=== PATIENT | female | born 1990 | race African-American/Black ===

== ENCOUNTER 2017-10-08 15:34 | Inpatient (IN) | payer MEDICAID ==
[~2017-10-08] VITALS: Ht 167.6 cm; Wt 134.8 kg
--- NOTE | ~2017-10-08 | OP ---
PATIENT NAME: TYSON FISHER MEDICAL RECORD: [id number] :90 LOCATION:D.M2 D.2136 ADMISSION DATE:10/08/17 SURGEON: JAZ NAYAK MD DATE OF OPERATION: 10/13/2017 PREOPERATIVE DIAGNOSES: 1. End-stage renal disease. 2. Hypertension. 3. Diabetes mellitus. 4. Morbid obesity. POSTOPERATIVE DIAGNOSES: 1. End-stage renal disease. 2. Hypertension. 3. Diabetes mellitus. 4. Morbid obesity. PROCEDURE: Laparoscopic peritoneal dialysis catheter placement. SURGEON: Jaz Nayak MD REPORT OF PROCEDURE: The patient's abdomen was prepped and draped in sterile fashion. A Veress needle was inserted in the left upper quadrant and abdomen was insufflated. A 5-mm Visiport trocar was inserted in the midline and above the umbilicus. Under direct visualization, I could see the Veress needle and there was no sign of any injury to bowel or surrounding structures. We placed a 5-mm trocar in the left lower quadrant under direct visualization. With this, I was able to take down some adhesions of the small bowel to the anterior abdominal wall from her previous midline incision. The adhesions came down easily. Once this was done, we had free look into the patient's pelvis. The patient's uterus was adherent to the anterior abdominal wall from the previous section. A 5-mm trocar was then placed in the right lower quadrant projecting into the midline of the abdomen. With this, I was able to pass a grasper through my left lower quadrant trocar into the right lower quadrant trocar. The 5-mm trocar was then removed from the right lower quadrant and a grasper was used to grasp the pigtail end of the peritoneal dialysis catheter. This was pulled through the skin and into position with 2 sheaths in good position at the peritoneal inlet and at the skin level. Once these were in good position, then the pigtail was placed in the pelvis with ease. This flushed and aspirated easily with normal saline. We then removed the insufflation and the trocars were removed. The catheter was sutured into place with 3-0 nylon and the skin incisions were closed with subcutaneous 5-0 Monocryl. A total of 10 mL of 0.25% Marcaine with epinephrine was infused into the surrounding tissues and the wounds were dressed appropriately. COMPLICATIONS: None. CONDITION: Stable. ANESTHESIA: General endotracheal and local. BLOOD LOSS: Minimal. TRANSINT:[id number] Voice Confirmation ID: [id number] DOCUMENT ID: [id number] OPERATIVE REPORT [id number] TYSON FISHER CHRISTIAN MD at 1319 CC: [id number] DICTATION DATE: 10/13/17 1624 PAINTER DRUM: 10/13/17 1656 DIS IN 10/14/17 [id number] [place] [address]
--- NOTE | ~2017-10-08 | OP ---
PATIENT NAME: TYSON FISHER MEDICAL RECORD: [id number] :90 LOCATION:D.M2 D.2136 ADMISSION DATE:10/08/17 SURGEON: JAZ NAYAK MD DATE OF OPERATION: 10/09/2017 PREOPERATIVE DIAGNOSES: 1. End-stage renal disease. 2. Morbid obesity. 3. Hypertension. POSTOPERATIVE DIAGNOSES: 1. End-stage renal disease. 2. Morbid obesity. 3. Hypertension. PROCEDURE: 1. Left IJ 23-cm HemoSplit catheter placement. 2. Fluoroscopic interpretation. SURGEON: Jaz Nayak MD REPORT OF PROCEDURE: The patient's left neck was prepped and draped in sterile fashion. Using ultrasound guidance, a needle was used to cannulate the left internal jugular vein. Using fluoroscopic guidance, we could see that the wire was in good position in the venous system. A skin incision was made on the left lateral chest and we tunneled the catheter between this and the wire exit site. Multiple dilators were placed over the wire followed by the dilator trocar device. The wire and dilator were removed and the catheter tips were advanced through the trocar. The catheter tips rested in good position at the right atrial superior vena caval junction. The catheter aspirated nonpulsatile dark blood and flushed easily with heparinized saline. The catheter was sutured into place with 3-0 nylon. The skin incisions were closed with subcutaneous 5-0 Monocryl. COMPLICATIONS: None. CONDITION: Stable. ANESTHESIA: General endotracheal. BLOOD LOSS: Minimal. TRANSINT:[id number] Voice Confirmation ID: [id number] DOCUMENT ID: [id number] JAZ NAYAK MD at 1319 CC: [id number] DICTATION DATE: 10/09/17 1005 FONDANT PUFF MAKER: 10/09/17 1210 DIS IN 10/14/17 [id number] [place] [address]
[2017-10-08 16:30] LABS: BASOPHILS 0.2 % (0-2); EOSINOPHILS 4.7 % (0-7); HEMATOCRIT 29.8 % (36.0-48.0); HEMOGLOBIN 9.5 g/dL (12-16); IMMATURE GRANULOCYTES 0.2 % (0-5); LYMPHOCYTES 32.6 % (15-50); MCH 25.8 pg (26.0-34.0); MCHC 31.9 g/dL (31.0-37.0); MEAN PLATELET VOLUME 9.3 fL (7.4-10.4); MONOCYTES 4.8 % (2-11); NEUTROPHILS 57.5 % (40-80); PLATELET COUNT 343 10x3/uL (130-400); RBC 3.68 10x6/uL (4.00-5.40); RDW 12.5 % (11.5-14.5)
[2017-10-08 16:47] LABS: ALBUMIN 2.6 g/dL (3.4-5.0); ANION GAP 15.7 mmol/L (8-16); BILIRUBIN - TOTAL 0.19 mg/dL (0.2-1.3); CARBON DIOXIDE 20.2 mmol/L (21.0-32.0); CREATININE - SERUM 7.2 mg/dL (0.6-1.3); POTASSIUM - SERUM 4.9 mmol/L (3.5-5.1); PROTEIN - SERUM 7.3 g/dL (6.4-8.2)
[2017-10-08 17:12] LABS: APPEARANCE CLEAR (CLEAR); BILIRUBIN NEGATIVE (NEGATIVE); COLOR YELLOW (YELLOW); GLUCOSE 1000 mg/dL (NEGATIVE); KETONE NEGATIVE (NEGATIVE); NITRITE NEGATIVE (NEGATIVE); PROTEIN 2+ mg/dL (NEGATIVE); UROBILINOGEN NORMAL (NORMAL)
[2017-10-08 17:14] LABS: BACTERIA FEW /hpf (NONE SEEN); EPITHELIAL CELLS 0-5 /hpf (0-5); WHITE CELLS - URINE OCC /hpf (0-5)
[2017-10-08] MEDS ORDERED: NORVASC5 MG PO (18:21)
[2017-10-08] MEDS ORDERED: ROCALTROL0.25 MCG PO (18:21)
[2017-10-08] MEDS ORDERED: TOPROL XL50 MG PO (18:22)
[2017-10-08] MEDS ORDERED: ZOCOR40 MG PO (18:22)
[2017-10-08] MEDS ORDERED: EZFE 200200 MG PO (18:22)
[2017-10-08] MEDS ORDERED: LASIX80 MG PO (18:23)
[2017-10-08] MEDS ORDERED: HUMALOG 30100 UNITS/ SC (18:23)
[2017-10-08] MEDS ORDERED: LEVEMIR100 U/M1 SC (18:24)
[2017-10-08 18:25] VITALS: BP 192/98; BMI 43.6
[2017-10-08] MEDS ORDERED: XANAX0.5 MG PO (18:25)
[2017-10-09] VITALS: BP 156/93
[2017-10-09 04:00] VITALS: BP 141/76
[2017-10-09 06:52] LABS: ANION GAP 18.2 mmol/L (8-16); CALCIUM 8.1 mg/dL (8.5-10.1); CARBON DIOXIDE 17.6 mmol/L (21.0-32.0); CREATININE - SERUM 7.2 mg/dL (0.6-1.3); POTASSIUM - SERUM 4.8 mmol/L (3.5-5.1)
[2017-10-09 06:53] LABS: BASOPHILS 0.3 % (0-2); EOSINOPHILS 5.4 % (0-7); HEMATOCRIT 29.4 % (36.0-48.0); IMMATURE GRANULOCYTES 0.1 % (0-5); MCH 25.4 pg (26.0-34.0); MCHC 30.6 g/dL (31.0-37.0); MCV 82.8 fL (80.0-100.0); MONOCYTES 6.3 % (2-11); NEUTROPHILS 50.9 % (40-80); PLATELET COUNT 317 10x3/uL (130-400); RBC 3.55 10x6/uL (4.00-5.40); RDW 12.6 % (11.5-14.5); WBC 9.5 10x3/uL (4.8-10.8)
[2017-10-09 06:58] LABS: INR 0.87 (0.85-1.17); PROTIME 11.5 SECONDS (11.6-15.0)
[2017-10-09 08:36] LABS: HCG SERUM NEGATIVE (NEGATIVE)
[2017-10-09 08:53] VITALS: BP 183/102
[2017-10-09 13:36] VITALS: BP 161/86
[2017-10-09 13:37] VITALS: Ht 167.6 cm; Wt 134.8 kg
[2017-10-09 16:27] VITALS: BP 147/96
[2017-10-10] VITALS: BP 171/78
[2017-10-10 07:45] VITALS: BP 148/95
[2017-10-10 09:23] LABS: BASOPHILS 0.3 % (0-2); EOSINOPHILS 2.7 % (0-7); HEMATOCRIT 26.6 % (36.0-48.0); HEMOGLOBIN 8.3 g/dL (12-16); IMMATURE GRANULOCYTES 0.1 % (0-5); LYMPHOCYTES 38.6 % (15-50); MCH 25.3 pg (26.0-34.0); MCHC 31.2 g/dL (31.0-37.0); MCV 81.1 fL (80.0-100.0); MEAN PLATELET VOLUME 9.1 fL (7.4-10.4); MONOCYTES 5.8 % (2-11); NEUTROPHILS 52.5 % (40-80); PLATELET COUNT 279 10x3/uL (130-400); RBC 3.28 10x6/uL (4.00-5.40); RDW 12.7 % (11.5-14.5); WBC 8.6 10x3/uL (4.8-10.8)
[2017-10-10 09:31] LABS: CALCIUM 7.9 mg/dL (8.5-10.1); CREATININE - SERUM 5.4 mg/dL (0.6-1.3)
[2017-10-10 09:36] LABS: ANION GAP 12.5 mmol/L (8-16); CARBON DIOXIDE 26.2 mmol/L (21.0-32.0); POTASSIUM - SERUM 3.7 mmol/L (3.5-5.1)
[2017-10-10 14:58] VITALS: BP 133/86
[2017-10-10 21:40] VITALS: BP 146/101
[2017-10-11 00:47] VITALS: BP 154/82
[2017-10-11 06:44] VITALS: BP 142/87
[2017-10-11 08:11] VITALS: BP 118/64
[2017-10-11 11:26] VITALS: BP 131/62
[2017-10-11 14:10] LABS: ANION GAP 16.6 mmol/L (8-16); CALCIUM 8.1 mg/dL (8.5-10.1); CARBON DIOXIDE 23.5 mmol/L (21.0-32.0); CREATININE - SERUM 5.3 mg/dL (0.6-1.3); POTASSIUM - SERUM 4.1 mmol/L (3.5-5.1)
[2017-10-11 16:53] VITALS: BP 136/74
[2017-10-12 05:57] LABS: BASOPHILS 0.4 % (0-2); EOSINOPHILS 3.4 % (0-7); HEMATOCRIT 29.7 % (36.0-48.0); HEMOGLOBIN 9.4 g/dL (12-16); IMMATURE GRANULOCYTES 0.2 % (0-5); LYMPHOCYTES 31.1 % (15-50); MCH 25.7 pg (26.0-34.0); MCHC 31.6 g/dL (31.0-37.0); MCV 81.1 fL (80.0-100.0); MEAN PLATELET VOLUME 8.8 fL (7.4-10.4); MONOCYTES 6.7 % (2-11); NEUTROPHILS 58.2 % (40-80); PLATELET COUNT 300 10x3/uL (130-400); RBC 3.66 10x6/uL (4.00-5.40); RDW 12.4 % (11.5-14.5); WBC 10.1 10x3/uL (4.8-10.8)
[2017-10-12 06:00] VITALS: BP 155/85
[2017-10-12 06:10] LABS: ANION GAP 13.8 mmol/L (8-16); CALCIUM 8.3 mg/dL (8.5-10.1); CARBON DIOXIDE 26.2 mmol/L (21.0-32.0); CREATININE - SERUM 5.9 mg/dL (0.6-1.3)
[2017-10-12 07:50] VITALS: BP 131/84
[2017-10-12 16:27] VITALS: BP 123/106
[2017-10-12 20:00] VITALS: BP 142/87
[2017-10-13] VITALS (7 sets, daily range): BP systolic 95–143; BP diastolic 56–83
[2017-10-13 04:14] LABS: HEPATITIS C ANTIBODY <0.1 (0.0-0.9)
[2017-10-13 06:26] LABS: BASOPHILS 0.2 % (0-2); EOSINOPHILS 3.1 % (0-7); HEMATOCRIT 28.4 % (36.0-48.0); HEMOGLOBIN 8.9 g/dL (12-16); IMMATURE GRANULOCYTES 0.2 % (0-5); LYMPHOCYTES 24.5 % (15-50); MCH 25.4 pg (26.0-34.0); MCHC 31.3 g/dL (31.0-37.0); MCV 80.9 fL (80.0-100.0); MONOCYTES 6.7 % (2-11); NEUTROPHILS 65.3 % (40-80); PLATELET COUNT 280 10x3/uL (130-400); RBC 3.51 10x6/uL (4.00-5.40); RDW 12.4 % (11.5-14.5); WBC 10.1 10x3/uL (4.8-10.8)
[2017-10-13 06:44] LABS: ANION GAP 13.6 mmol/L (8-16); CALCIUM 7.9 mg/dL (8.5-10.1); CARBON DIOXIDE 25.2 mmol/L (21.0-32.0); CREATININE - SERUM 4.8 mg/dL (0.6-1.3); POTASSIUM - SERUM 3.8 mmol/L (3.5-5.1)
[2017-10-14 06:44] LABS: BASOPHILS 0.2 % (0-2); EOSINOPHILS 1.5 % (0-7); HEMOGLOBIN 8.7 g/dL (12-16); IMMATURE GRANULOCYTES 0.2 % (0-5); LYMPHOCYTES 21.8 % (15-50); MCH 25.8 pg (26.0-34.0); MCHC 31.1 g/dL (31.0-37.0); MEAN PLATELET VOLUME 9.1 fL (7.4-10.4); MONOCYTES 8.5 % (2-11); NEUTROPHILS 67.8 % (40-80); PLATELET COUNT 318 10x3/uL (130-400); RBC 3.37 10x6/uL (4.00-5.40); RDW 12.7 % (11.5-14.5)
[2017-10-14 06:51] LABS: ANION GAP 14.8 mmol/L (8-16); CALCIUM 8.2 mg/dL (8.5-10.1); CARBON DIOXIDE 24.8 mmol/L (21.0-32.0)
[2017-10-14 06:52] LABS: CREATININE - SERUM 6.2 mg/dL (0.6-1.3); POTASSIUM - SERUM 4.6 mmol/L (3.5-5.1)
[2017-10-14 06:57] LABS: MCV 83.1 fL (80.0-100.0); WBC 12.7 10x3/uL (4.8-10.8)
[2017-10-14 08:37] VITALS: BP 153/84
[2017-12-07] MEDS ORDERED: BUPROPION HCL150 M1 PO (13:32)
[2017-12-07] MEDS ORDERED: ROCALTROL0.25 MCG PO (13:32)
[2017-12-07] MEDS ORDERED: SLOW RELEASE I160 MG PO (13:33)
[2017-12-07] MEDS ORDERED: ZOCOR40 MG PO (13:33)
[2017-12-07] MEDS ORDERED: HYDRALAZINE HCL50 MG PO (13:34)
== END 2017-10-14 11:39 | disposition home or self-care (01) | DRG 673 ==
LOC: D.ER 15:34 → D.M2 17:23
PROVIDERS: Emergency Medicine; Internal Medicine Nephrology; Physician Assistant Medical; Surgery
PROC: B5181ZA Fluoroscopy of Superior Vena Cava using Low Osmolar Contrast, Guidance (ICD-10-PCS; 2017-10-09)
PROC: 02HV33Z Insertion of Infusion Device into Superior Vena Cava, Percutaneous Approach (ICD-10-PCS; principal; 2017-10-09 12:00)
PROC: 0WHG43Z Insertion of Infusion Device into Peritoneal Cavity, Percutaneous Endoscopic Approach (ICD-10-PCS; 2017-10-13)
DX: I12.0 Hypertensive chronic kidney disease with stage 5 chronic kidney disease or end stage renal disease (principal); N18.6 End stage renal disease; Z68.41 Body mass index [BMI] 40.0-44.9, adult; E11.22 Type 2 diabetes mellitus with diabetic chronic kidney disease; E11.65 Type 2 diabetes mellitus with hyperglycemia; E66.01 Morbid (severe) obesity due to excess calories

== ENCOUNTER 2017-12-08 05:55 | Day surgery (SDC) | payer MEDICAID ==
[~2017-12-08] VITALS: Ht 167.6 cm; Wt 125.2 kg
--- NOTE | ~2017-12-08 | OP ---
PATIENT NAME: TYSON FISHER MEDICAL RECORD: [id number] :90 LOCATION:D.OPS ADMISSION DATE: SURGEON: DUANE NAYAK MD DATE OF OPERATION: 12/08/2017 PREOPERATIVE DIAGNOSES: 1. Anemia of chronic disease. 2. Need for IV access. 3. End-stage renal disease. 4. Diabetes mellitus. 5. Hypertension. 6. Morbid obesity. POSTOPERATIVE DIAGNOSES: 1. Anemia of chronic disease. 2. Need for IV access. 3. End-stage renal disease. 4. Diabetes mellitus. 5. Hypertension. 6. Morbid obesity. PROCEDURE: 1. Left internal jugular port placement. 2. Fluoroscopic interpretation. SURGEON: Duane Nayak MD REPORT OF PROCEDURE: The patient's chest and neck were prepped and draped in sterile fashion. Using ultrasound guidance, a needle was used to cannulate the left internal jugular vein. A guidewire was advanced with ease. Fluoro was used to note that the wire was in good position in the venous system. A skin incision was then made on the left lateral chest and a subcutaneous pouch was made over the pectoral fascia. The catheter was tunneled between this pouch and the wire exit site. The port was then sutured down using interrupted 2-0 Prolenes times 2. The catheter was cut with a beveled tip at 22 cm. The dilator trocar device was then placed over the wire, and the wire and dilator were removed. The catheter tip was advanced through the trocar and the trocar was removed. The catheter tips were resting in good position in superior vena cava. We then aspirated the port, and aspirated freely and flushed easily with heparinized saline. The subcutaneous tissues were reapproximated with interrupted 3-0 Vicryl and then infused with 10 mL of 0.25% Marcaine with epinephrine. The skin incision was closed with subcutaneous 5-0 Monocryl and dressed appropriately. COMPLICATIONS: None. CONDITION: Stable. ANESTHESIA: General endotracheal and local. BLOOD LOSS: Minimal. TRANSINT:[id number] Voice Confirmation ID: [id number] DOCUMENT ID: [id number] OPERATIVE REPORT [id number] PHILLIPTYSON DUANE NAYAK MD at 1052 CC: KIT HERMOSILLO [id number] DICTATION DATE: 12/08/17 0947 PEDIATRIC LICENSED PRACTICAL NURSE: 12/08/17 1302 [facility] [place] 12/08/17 [facility] [address] [place] [address]
[~2017-12-08 05:55] MED LIST: BUPROPION HCL150 M1 PO; EZFE 200200 MG PO; HUMALOG 30100 UNITS/ SC; HYDRALAZINE HCL50 MG PO; LASIX80 MG PO; LEVEMIR100 U/M1 SC; NORVASC5 MG PO; ROCALTROL0.25 MCG PO; SLOW RELEASE I160 MG PO; TOPROL XL50 MG PO; XANAX0.5 MG PO; ZOCOR40 MG PO
[2017-12-08 06:52] LABS: BASOPHILS 0.4 % (0-2); HEMATOCRIT 38.1 % (36.0-48.0); HEMOGLOBIN 11.8 g/dL (12-16); IMMATURE GRANULOCYTES 0.1 % (0-5); LYMPHOCYTES 36.9 % (15-50); MCH 25.9 pg (26.0-34.0); MCV 83.7 fL (80.0-100.0); MEAN PLATELET VOLUME 8.7 fL (7.4-10.4); NEUTROPHILS 54.6 % (40-80); PLATELET COUNT 378 10x3/uL (130-400); RBC 4.55 10x6/uL (4.00-5.40); RDW 14.4 % (11.5-14.5); WBC 7.9 10x3/uL (4.8-10.8)
[2017-12-08 07:09] LABS: INR 0.97 (0.85-1.17); PROTIME 12.5 SECONDS (11.6-15.0)
[2017-12-08 07:10] LABS: APTT 27.9 SECONDS (22.8-39.4)
[2017-12-08] MEDS ORDERED: PHENERGAN25 M1 (07:15)
[2017-12-08 07:16] VITALS: BP 129/89; Ht 167.6 cm; Wt 125.2 kg
[2017-12-08 07:24] LABS: ANION GAP 15.2 mmol/L (8-16); CALCIUM 8.4 mg/dL (8.5-10.1); CARBON DIOXIDE 26.5 mmol/L (21.0-32.0); CREATININE - SERUM 6.4 mg/dL (0.6-1.3); POTASSIUM - SERUM 3.7 mmol/L (3.5-5.1)
[2017-12-08 07:34] LABS: HCG URINE NEGATIVE (NEGATIVE)
[2017-12-08] MEDS ORDERED: HYDROCODONE-APA1 TAB PO (09:43)
== END 2017-12-08 12:00 | disposition home or self-care (01) ==
LOC: D.OPS 05:55
PROVIDERS: Internal Medicine Nephrology; Surgery
DX: E11.22 Type 2 diabetes mellitus with diabetic chronic kidney disease (principal); I12.0 Hypertensive chronic kidney disease with stage 5 chronic kidney disease or end stage renal disease; N18.6 End stage renal disease; D63.1 Anemia in chronic kidney disease; E66.01 Morbid (severe) obesity due to excess calories; Z68.41 Body mass index [BMI] 40.0-44.9, adult; Z01.812 Encounter for preprocedural laboratory examination

== ENCOUNTER 2018-04-02 06:23 | Day surgery (SDC) | payer MEDICARE ==
[~2018-04-02] VITALS: Ht 167.6 cm; Wt 116.8 kg
--- NOTE | ~2018-04-02 | OP ---
PATIENT NAME: TYSON FISHER MEDICAL RECORD: [id number] :90 LOCATION:D.OPS ADMISSION DATE: SURGEON: JAZ NAYAK MD DATE OF OPERATION: 04/02/2018 PREOPERATIVE DIAGNOSES: 1. Indwelling port. 2. End-stage renal disease. 3. Hypertension. 4. Hypercholesterolemia. 5. Diabetes mellitus. 6. Morbid obesity. POSTOPERATIVE DIAGNOSES: 1. Indwelling port. 2. End-stage renal disease. 3. Hypertension. 4. Hypercholesterolemia. 5. Diabetes mellitus. 6. Morbid obesity. PROCEDURE: Left subclavian vein port removal. SURGEON: Jaz Nayak MD REPORT OF PROCEDURE: The patient's left chest was prepped and draped in sterile fashion. A total of 10 mL of 1% lidocaine with epinephrine was infused into the surrounding tissues. A transverse skin incision was made overlying the port. Electrocautery was used to dissect through the subcutaneous tissues. We were able to come around the catheter leading from the port. This was removed and a 3-0 Vicryl was used in a [id number] fashion to close off the lumen. The catheter was then excised removing the suture, which was holding it in place. We then irrigated out the wound with normal saline. The subcutaneous tissues were reapproximated with interrupted 3-0 Vicryl and the skin was closed with running subcutaneous 5-0 Monocryl. COMPLICATIONS: None. CONDITION: Stable. ANESTHESIA: Local MAC. BLOOD LOSS: Minimal. TRANSINT:[id number] Voice Confirmation ID: [id number] DOCUMENT ID: [id number] JAZ NAYAK MD at 1110 CC: [id number] DICTATION DATE: 04/02/18916 LACQUER POLISHER: 04/02/18 1058 [facility] 04/02/18 [place] [address]
[~2018-04-02 06:23] MED LIST changes: +HYDROCODONE-APA1 TAB PO; +PHENERGAN25 M1
[2018-04-02 07:04] LABS: BASOPHILS 0.4 % (0-2); HEMATOCRIT 35.4 % (36.0-48.0); IMMATURE GRANULOCYTES 0.1 % (0-5); LYMPHOCYTES 34.8 % (15-50); MCH 26.9 pg (26.0-34.0); MCHC 31.1 g/dL (31.0-37.0); MCV 86.6 fL (80.0-100.0); MONOCYTES 6.7 % (2-11); PLATELET COUNT 382 10x3/uL (130-400); RBC 4.09 10x6/uL (4.00-5.40); RDW 19.1 % (11.5-14.5); WBC 8.5 10x3/uL (4.8-10.8)
[2018-04-02 07:06] LABS: ANION GAP 14.1 mmol/L (8-16); CALCIUM 8.6 mg/dL (8.5-10.1); CARBON DIOXIDE 27.7 mmol/L (21.0-32.0); CREATININE - SERUM 9.4 mg/dL (0.6-1.3); POTASSIUM - SERUM 3.8 mmol/L (3.5-5.1)
[2018-04-02 08:08] VITALS: BP 138/83; Ht 167.6 cm; Wt 116.8 kg
[2018-04-02] MEDS ORDERED: NORCO 7.5/325 T1 TA1 PO (09:13)
== END 2018-04-02 10:40 | disposition home or self-care (01) ==
LOC: D.OPS 06:23 → D.PAN 08:45 → D.OPS 09:15
PROVIDERS: Surgery
DX: Z45.2 Encounter for adjustment and management of vascular access device (principal); E11.22 Type 2 diabetes mellitus with diabetic chronic kidney disease; I12.0 Hypertensive chronic kidney disease with stage 5 chronic kidney disease or end stage renal disease; N18.6 End stage renal disease; E78.00 Pure hypercholesterolemia, unspecified; E66.01 Morbid (severe) obesity due to excess calories; Z68.41 Body mass index [BMI] 40.0-44.9, adult; Z01.812 Encounter for preprocedural laboratory examination